=== PATIENT | female | born 1985 | race Caucasian/White ===

== ENCOUNTER 2018-01-01 08:43 | Emergency (ER) | payer BC, OTHER ==
--- NOTE | 2018-01-01 08:53 | EDM.PDOC ---
ED HPI GENERAL MEDICAL PROBLEM - General Stated Complaint: PAIN ON RIGHT SIDE Time Seen by Provider: 01/01/18 08:43 Source of Information: Reports: Patient History Limitations: Reports: No Limitations - History of Present Illness INITIAL COMMENTS - FREE TEXT/NARRATIVE: 32 y.o.w.marcello came to to the ed this am due to acute onset of pain at her RLQ of her abd. No trauma, denies . no dysuria. She is concerned about an appendicitis. No N/V/D or any other acute medical issues. Pain is rated at 5/10 BP 152/96 RR 20 Pulse ox 98% on RA temp 36.8 pulse 75 Onset Date: 01/01/18 Onset Time: 02:00 Duration: Hour(s): Location: Reports: Abdomen (RLQ ) Quality: Reports: Ache, Burning, Dull, Pressure Severity: Moderate Improves with: Reports: Rest Worsens with: Reports: Movement Context: Reports: Other Associated Symptoms: Reports: No Other Symptoms right side abd Pain Score (Numeric/FACES): 7 - Related Data Allergies Allergy/AdvReac Type Severity Reaction Status Date / Time No Known Allergies Allergy Verified 01/01/18 08:58 Home Meds: Home Meds Ibuprofen [Motrin] 600 mg PO Q6H PRN #0 tablet 10/20/14 [Rx] Past Medical History Other Neuro History: had one seizure in the past had 2 spinal taps to drain fluid from her brain approx 2 1/2 yrs ago no problems since has a 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 2hrs aftre my meals which were between 115-120. ED ROS GENERAL - Review of Systems Review Of Systems: See Below Constitutional: Reports: No Symptoms HEENT: Reports: No Symptoms Respiratory: Reports: No Symptoms Cardiovascular: Reports: No Symptoms Endocrine: Reports: No Symptoms GI/Abdominal: Reports: Abdominal Pain (RLQ) : Reports: No Symptoms Musculoskeletal: Reports: No Symptoms Skin: Reports: No Symptoms Neurological: Reports: No Symptoms Psychiatric: Reports: No Symptoms Hematologic/Lymphatic: Reports: No Symptoms Immunologic: Reports: No Symptoms ED EXAM, GI/ABD - Physical Exam Exam: See Below Exam Limited By: No Limitations General Appearance: Alert, WD/WN, Mild Distress, Obese Eyes: Bilateral: Normal Appearance Ears: Normal External Exam Nose: Normal Inspection Throat/Mouth: Normal Inspection Head: Atraumatic Neck: Normal Inspection Respiratory/Chest: No Respiratory Distress, Lungs Clear, Normal Breath Sounds, No Accessory Muscle Use, Chest Non-Tender Cardiovascular: Normal Peripheral Pulses, Regular Rate, Rhythm, No Edema, No Gallop, No JVD, No Murmur, No Rub GI/Abdominal Exam: Normal Bowel Sounds, No Organomegaly, No Distention, No Abnormal Bruit, No Mass, Pelvis Stable, Tender (RLQ with ppos roving sign) (Female) Exam: Deferred Rectal (Female) Exam: Deferred Back Exam: Normal Inspection, Full Range of Motion Extremities: Normal Inspection, Normal Range of Motion, Non-Tender, No Pedal Edema Neurological: Alert, Oriented, CN II-XII Intact, Normal Cognition, Normal Gait, No Motor/Sensory Deficits Psychiatric: Normal Affect, Normal Mood Skin Exam: Warm, Dry, Intact, Normal Color, No Rash Lymphatic: No Adenopathy Course - Vital Signs Text/Narrative:: 32 y.o.w.f came to to the ed this am due to acute onset of pain at her RLQ of her abd. No trauma, denies . no dysuria. She is concerned about an appendicitis. No N/V/D or any other acute medical issues. Pain is rated at 5/10 BP 152/96 RR 20 Pulse ox 98% on RA temp 36.8 pulse 75 PE: Morbid obese WF with RLQ abd.pain, no trauma, S/P C section, has 2 children Imaging: CT abd/pelvis: Possible torsion of ovary Pelvic US: Poss ovarian Torsion, no blood flow to ovary, off report is pending Labs: CBC WNL, BMP WNL UA Neg HCG neg Impression: RLQ abd. pain, possible Torsion of right ovary Tx: Morphin, NS, Dilaudid, Zosyn 12.05 am Consultation: Dr. Connor, Surgeon: Transfere to [place], he does not do OB/ TOOLROOM HELPER surgeries 12.10 am Consultation: Dr. Elizabeth, OG/TOOLROOM HELPER, [facility]: Possible torsion of right ovary, transfer pt to the ED. Dr. Resendiz, [facility], accepted the PT Reexam: Pain improved Plan: Transfer to ED Last Recorded V/S: Last Vital Signs Temp 36.6 C 01/01/18 12:50 Pulse 74 01/01/18 12:50 Resp 18 01/01/18 12:50 BP 130/61 01/01/18 12:50 Pulse Ox 98 01/01/18 12:50 - Orders/Labs/Meds Orders: Active Orders 24 hr Category Date Time Status Abdomen Pelvis w Cont [CT] Stat Exams 01/01/18 09:39 Taken Pelvis Non OB Comp [US] Stat Exams 01/01/18 12:28 Taken Pelvis Non OB Ltd [US] Stat Exams 01/01/18 12:28 Taken HCG QUALITATIVE,URINE [URCHEM] Stat Lab 01/01/18 09:03 Ordered UA W/MICROSCOPIC [URIN] Stat Lab 01/01/18 09:03 Ordered Peripheral IV Insertion Adult [OM.PC] Routine Oth 01/01/18 09:09 Ordered Labs: Laboratory Tests 01/01/18 01/01/18 01/01/18 Range/Units 09:03 09:03 09:15 WBC 11.2 (4.5-12.0) X10-3/uL RBC 4.52 (3.23-5.20) x10(6)uL Hgb 13.1 (11.5-15.5) g/dL Hct 38.4 (30.0-51.3) % MCV 85.0 (80-96) fL MCH 29.1 (27.7-33.6) pg MCHC 34.2 (32.2-35.4) g/dL RDW 12.6 (11.5-15.5) % Plt Count 260 (125-369) X10(3)uL MPV 8.8 (7.4-10.4) fL Neut % (Auto) 76.0 (46-82) % Lymph % (Auto) 17.4 (13-37) % [place] % (Auto) 3.0 L (4-12) % Eos % (Auto) 3 (1.0-5.0) % Baso % (Auto) 1 (0-2) % Neut # (Auto) 8.5 H (1.6-8.3) # Lymph # (Auto) 2.0 (0.6-5.0) # [place] # (Auto) 0.3 (0.0-1.3) # Eos # (Auto) 0.3 (0.0-0.8) # Baso # (Auto) 0.1 (0.0-0.2) # PT (8.7-11.1) INR (0.89-1.13) Sodium (135-145) mmol/L Potassium (3.5-5.3) mmol/L Chloride (100-110) mmol/L Carbon Dioxide (21-32) mmol/L BUN (7-18) mg/dL Creatinine (0.55-1.02) mg/dL Est Cr Clr Drug Dosing mL/min Estimated GFR (MDRD) (>60) BUN/Creatinine Ratio (9-20) Glucose (80-116) mg/dL Calcium (8.6-10.2) mg/dL Total Bilirubin (0.1-1.3) mg/dL Direct Bilirubin (0.10-0.20) mg/dL AST (5-25) IU/L ALT (12-36) U/L Alkaline Phosphatase (56-112) IU/L Total Protein (6.0-8.0) g/dL Albumin (3.5-5.2) g/dL Urine Color Yellow (YELLOW) Urine Appearance Slightly cloudy (CLEAR) Urine pH 7.0 H (5.0-6.5) Ur Specific [place] 1.015 (1.010-1.025) Urine Protein Negative (NEGATIVE) mg/dL Urine Glucose (UA) Normal (NEGATIVE) mg/dL Urine Ketones Negative (NEGATIVE) mg/dL Urine Occult Blood Negative (NEGATIVE) Urine Nitrite Negative (NEGATIVE) Urine Bilirubin Negative (NEGATIVE) Urine Urobilinogen Normal (NEGATIVE) mg/dL Ur Leukocyte Esterase Negative (NEGATIVE) Urine WBC 0-5 (0) Ur Squamous Epith Cells Moderate H (NS,R,O) Urine Bacteria Moderate H (NS) Urine HCG, Qual Negative (NEGATIVE) 01/01/18 01/01/18 01/01/18 Range/Units 09:15 09:15 09:15 WBC (4.5-12.0) X10-3/uL RBC (3.23-5.20) x10(6)uL Hgb (11.5-15.5) g/dL Hct (30.0-51.3) % MCV (80-96) fL MCH (27.7-33.6) pg MCHC (32.2-35.4) g/dL RDW (11.5-15.5) % Plt Count (125-369) X10(3)uL MPV (7.4-10.4) fL Neut % (Auto) (46-82) % Lymph % (Auto) (13-37) % [place] % (Auto) (4-12) % Eos % (Auto) (1.0-5.0) % Baso % (Auto) (0-2) % Neut # (Auto) (1.6-8.3) # Lymph # (Auto) (0.6-5.0) # [place] # (Auto) (0.0-1.3) # Eos # (Auto) (0.0-0.8) # Baso # (Auto) (0.0-0.2) # PT 9.3 (8.7-11.1) INR 0.96 (0.89-1.13) Sodium 137 (135-145) mmol/L Potassium 4.0 (3.5-5.3) mmol/L Chloride 102 (100-110) mmol/L Carbon Dioxide 29 (21-32) mmol/L BUN 11 (7-18) mg/dL Creatinine 0.6 (0.55-1.02) mg/dL Est Cr Clr Drug Dosing 128.35 mL/min Estimated GFR (MDRD) > 60 (>60) BUN/Creatinine Ratio 18.3 (9-20) Glucose 108 (80-116) mg/dL Calcium 8.5 L (8.6-10.2) mg/dL Total Bilirubin 0.6 (0.1-1.3) mg/dL Direct Bilirubin 0.12 (0.10-0.20) mg/dL AST 10 (5-25) IU/L ALT 17 (12-36) U/L Alkaline Phosphatase 74 (56-112) IU/L Total Protein 7.7 (6.0-8.0) g/dL Albumin 3.5 (3.5-5.2) g/dL Urine Color (YELLOW) Urine Appearance (CLEAR) Urine pH (5.0-6.5) Ur Specific [place] (1.010-1.025) Urine Protein (NEGATIVE) mg/dL Urine Glucose (UA) (NEGATIVE) mg/dL Urine Ketones (NEGATIVE) mg/dL Urine Occult Blood (NEGATIVE) Urine Nitrite (NEGATIVE) Urine Bilirubin (NEGATIVE) Urine Urobilinogen (NEGATIVE) mg/dL Ur Leukocyte Esterase (NEGATIVE) Urine WBC (0) Ur Squamous Epith Cells (NS,R,O) Urine Bacteria (NS) Urine HCG, Qual (NEGATIVE) Meds: Medications Discontinued Medications Generic Name Dose Route Start Last Admin Trade Name Freq PRN Reason Stop Dose Admin Hydromorphone HCl 1 mg 01/01/18 10:16 01/01/18 10:21 Dilaudid IVPUSH 01/01/18 10:17 1 mg ONETIME ONE Administration Hydromorphone HCl 0.5 mg 01/01/18 10:57 01/01/18 11:02 Dilaudid IVPUSH 01/01/18 10:58 0.5 mg ONETIME STA Administration Hydromorphone HCl 1 mg 01/01/18 12:23 01/01/18 12:35 Dilaudid IVPUSH 01/01/18 12:24 1 mg ONETIME STA Administration Sodium Chloride 1,000 mls @ 125 mls/hr 01/01/18 09:48 01/01/18 09:55 Normal Saline IV 01/01/18 17:47 125 mls/hr ASDIRECTED STA Administration Piperacillin Sod/Tazobactam 50 mls @ 100 mls/hr 01/01/18 10:38 01/01/18 10:50 Sod 3.375 gm/ Sodium Chloride IV 01/01/18 11:07 100 mls/hr ONETIME STA Administration Iopamidol 150 ml 01/01/18 09:49 01/01/18 10:06 Isovue-370 (76%) IV 01/01/18 09:50 138 ml ONETIME ONE Administration Morphine Sulfate 2 mg 01/01/18 09:10 01/01/18 09:35 Morphine Sulfate IVPUSH 01/01/18 09:11 Not Given ONETIME ONE Morphine Sulfate 2 mg 01/01/18 09:21 01/01/18 09:26 Morphine IVPUSH 01/01/18 09:22 2 mg ONETIME ONE Administration Morphine Sulfate 4 mg 01/01/18 09:45 01/01/18 10:00 Morphine IVPUSH 01/01/18 09:46 Not Given ONETIME ONE Morphine Sulfate 4 mg 01/01/18 09:50 01/01/18 09:55 Morphine Sulfate IVPUSH 01/01/18 09:51 4 mg ONETIME ONE Administration Ondansetron HCl 8 mg 01/01/18 09:12 01/01/18 09:26 Zofran IVPUSH 01/01/18 09:13 8 mg ONETIME ONE Administration Sodium Chloride 10 ml 01/01/18 09:09 01/01/18 09:26 Saline Flush FLUSH 10 ml ASDIRECTED PRN Administration Keep Vein Open Departure - Departure Time of Disposition: 12:55 Disposition: DC/Tfer to [facility] Condition: Fair Clinical Impression: Torsion of ovary - Discharge Information Referrals: Enrique Nascimento MD [Primary Care Provider] - Forms: ED Department Discharge - My Orders Last 24 Hours: My Active Orders 01/01/18 09:03 HCG QUALITATIVE,URINE [URCHEM] Stat UA W/MICROSCOPIC [URIN] Stat 01/01/18 09:09 Peripheral IV Insertion Adult [OM.PC] Routine 01/01/18 09:39 Abdomen Pelvis w Cont [CT] Stat 01/01/18 12:28 Pelvis Non OB Comp [US] Stat Pelvis Non OB Ltd [US] Stat - Assessment/Plan Last 24 Hours: My Active Orders 01/01/18 09:03 HCG QUALITATIVE,URINE [URCHEM] Stat UA W/MICROSCOPIC [URIN] Stat 01/01/18 09:09 Peripheral IV Insertion Adult [OM.PC] Routine 01/01/18 09:39 Abdomen Pelvis w Cont [CT] Stat 01/01/18 12:28 Pelvis Non OB Comp [US] Stat Pelvis Non OB Ltd [US] Stat
[2018-01-01] MEDS ORDERED: Sodium Chloride 0.9% 10 ML Syringe FLUSH PRN (09:09)
[2018-01-01] MEDS ORDERED: Ondansetron 4 MG/2 ML SDV IVPUSH ONE (09:12)
[2018-01-01] MEDS ORDERED: Morphine 2 MG/ML Syringe IVPUSH ONE (09:21)
[2018-01-01] MEDS ORDERED: Morphine 4 MG/ML Syringe IVPUSH ONE (09:45)
[2018-01-01] MEDS ORDERED: Sodium Chloride 0.9% 1,000 ML IV STA (09:48)
[2018-01-01] MEDS ORDERED: Iopamidol 755 MG/ML 150 ML Bottle IV ONE (09:49)
[2018-01-01] MEDS ORDERED: HYDROmorphone 2 MG/ML SDV IVPUSH ONE (10:16)
[2018-01-01] MEDS ORDERED: Piperacillin/Tazobactam 3.375 GM in Sodium Chloride 0.9% 50 ML IV STA (10:38)
[2018-01-01] MEDS ORDERED: HYDROmorphone 2 MG/ML SDV IVPUSH STA ×2 (10:57→12:23)
[2018-01-01 14:04] VITALS: BP 130/61
== END 2018-01-01 12:59 | disposition critical access hospital (66) ==
LOC: FB.ED 08:43
DX: N83.511 Torsion of right ovary and ovarian pedicle (principal)
CPT/HCPCS: 36415; 74177; 76830; 76856; 76857; 80048; 80076; 81001; 81025; 85025; 85610; 96361; 96365; 96375; 96376; 99285; J1170; J2270; J2405; J2543; J7030; J7050; Q9967